=== PATIENT | female | born 1955 | race Caucasian/White ===

== ENCOUNTER 2016-06-23 15:58 | Emergency (ER) | payer MEDICAID ==
[~2016-06-23] VITALS: Ht 167.6 cm; Wt 72.0 kg
[2016-06-23] MEDS ORDERED: IBUPROFEN 600MG TABLET PO ONE (17:00)
[2016-06-23] MEDS ORDERED: ACETAMINOPHEN 325MG TABLET PO ONE (17:00)
[2016-06-23 18:32] VITALS: BP 131/80
== END 2016-06-23 19:32 | disposition home or self-care (01) ==
LOC: ER 15:59
DX: S20.219A Contusion of unspecified front wall of thorax, initial encounter (principal); S80.02XA Contusion of left knee, initial encounter; S80.01XA Contusion of right knee, initial encounter; V49.49XA Driver injured in collision with other motor vehicles in traffic accident, initial encounter; Y93.89 Activity, other specified; Y92.414 Local residential or business street as the place of occurrence of the external cause; R03.0 Elevated blood-pressure reading, without diagnosis of hypertension
CPT/HCPCS: 99283; Z7610

== ENCOUNTER 2016-06-29 11:01 | Emergency (ER) | payer MEDICAID ==
[~2016-06-29] VITALS: Ht 157.5 cm; Wt 95.0 kg
[2016-06-29 14:29] LABS: BASOPHILS % 0.3 % (0.0-2.0); EOSINOPHILS % 0.8 % (0.0-5.0); HEMATOCRIT. 34.9 % (36.0-48.0); HEMOGLOBIN. 11.9 g/dL (12.0-16.0); LYMPHOCYTES % 27.2 % (20.0-50.0); MEAN CORPUSCULAR HEMOGLOBIN 31.8 pg (28.0-32.0); MEAN CORPUSCULAR HGB CONC 34.1 g/dL (31.0-37.0); MEAN CORPUSCULAR VOLUME 93.4 fL (81.0-99.0); MEAN PLATELET VOLUME 9.7 fl (7.4-10.4); MONOCYTES % 8.8 % (2.0-8.0); NEUTROPHILS % 62.9 % (40.0-76.0); PLATELET 210 x1000/uL (130-400); RED BLOOD CELL COUNT 3.73 mill/uL (4.2-5.4); RED CELL DISTRIBUTION WIDTH 13.9 % (11.6-14.6); WHITE BLOOD COUNT 6.7 x1000/uL (4.5-11.0)
[2016-06-29 14:36] LABS: PARTIAL THROMBOPLASTIN TIME 28.4 sec (24.0-34.0); PROTHROMBIN TIME 10.4 sec
[2016-06-29 14:39] LABS: CALCIUM 9.1 mg/dL (8.5-10.1); CARBON DIOXIDE 27 mEq/L (21-32); INDEX HEMOLYSI 1 (1-3); INDEX ICTERIC 1 (1-4); INDEX LIPEMIC 1 (1-3); UREA NITROGEN BLOOD 20 mg/dL (7-21); eGFR > 60 mL/min (>60)
[2016-06-29] MEDS ORDERED: IOHEXOL-300 100 ML BOTTLE ONE (14:44)
[2016-06-29] MEDS ORDERED: SODIUM CHLORIDE 0.9% 10ML VIAL ONE (14:44)
[2016-06-29 14:47] LABS: ANION GAP 10; CHLORIDE 108 mEq/L (98-107)
[2016-06-29 16:26] LABS: BASOPHILS % 0.7 % (0.0-2.0); EOSINOPHILS % 0.8 % (0.0-5.0); HEMOGLOBIN. 12.8 g/dL (12.0-16.0); LYMPHOCYTES % 27.7 % (20.0-50.0); MEAN CORPUSCULAR HEMOGLOBIN 31.5 pg (28.0-32.0); MEAN CORPUSCULAR HGB CONC 33.6 g/dL (31.0-37.0); MEAN CORPUSCULAR VOLUME 93.8 fL (81.0-99.0); MEAN PLATELET VOLUME 9.7 fl (7.4-10.4); MONOCYTES % 6.6 % (2.0-8.0); NEUTROPHILS % 64.2 % (40.0-76.0); PLATELET 244 x1000/uL (130-400); RED BLOOD CELL COUNT 4.05 mill/uL (4.2-5.4); RED CELL DISTRIBUTION WIDTH 14.3 % (11.6-14.6); WHITE BLOOD COUNT 7.7 x1000/uL (4.5-11.0)
[2016-06-29 16:28] LABS: CLARITY URINE CLOUDY (CLEAR); COLOR URINE YELLOW (YELLOW); GLUCOSE URINE NEGATIVE (NEGATIVE); KETONES URINE NEGATIVE (NEGATIVE); LEUKOCYTE ESTERASE URINE 2+ (NEGATIVE); NITRITE URINE NEGATIVE (NEGATIVE); OCCULT BLOOD URINE NEGATIVE (NEGATIVE); PROTEIN URINE NEGATIVE (NEGATIVE); SPECIFIC GRAVITY URINE 1.037 (1.005-1.030); UROBILINOGEN URINE 0.2 E.U./dL (0.2-1.0)
[2016-06-29 16:59] LABS: BACTERIA URINE 1+; RBC URINE 0-2 /hpf (0-2); SQUAMOUS EPITHELIAL CELL URINE 2+ /lpf (RARE/1+)
[2016-06-29] MEDS ORDERED: HYDROCODONE/ACETAMINOPHEN 5/325MG TABLET PO ONE (17:00)
[2016-06-29 18:42] VITALS: BP 130/66
== END 2016-06-29 19:02 | disposition home or self-care (01) ==
LOC: ER 15:10
DX: S80.02XA Contusion of left knee, initial encounter (principal); S80.11XA Contusion of right lower leg, initial encounter; S30.1XXA Contusion of abdominal wall, initial encounter; S20.02XA Contusion of left breast, initial encounter; S20.01XA Contusion of right breast, initial encounter; M54.5 Low back pain; R03.0 Elevated blood-pressure reading, without diagnosis of hypertension; V49.49XA Driver injured in collision with other motor vehicles in traffic accident, initial encounter; Y93.89 Activity, other specified; Y92.414 Local residential or business street as the place of occurrence of the external cause; E03.9 Hypothyroidism, unspecified; R16.0 Hepatomegaly, not elsewhere classified; D25.9 Leiomyoma of uterus, unspecified; K44.9 Diaphragmatic hernia without obstruction or gangrene
CPT/HCPCS: 29505; 36415; 71260; 73560; 73590; 74177; 80048; 81001; 85025; 85610; 85730; 99285; A4216; Q9967; Z7610